=== PATIENT | female | born 1965 | race Caucasian/White ===

== ENCOUNTER 2017-12-20 08:52 | Outpatient (CLI) | payer OTHER ==
[2017-12-20 18:15] LABS: Bilirubin Negative (Negative); Blood, Urine Negative (Negative); Clarity CLEAR (Clear); Glucose, Urine (Dipstick) Negative (Negative); Leukocyte Negative (Negative); Nitrite Negative (Negative); Protein, Urine (Dipstick) 300 mg/dL (Neg-Trace); Specific Gravity, Urine 1.014 (1.002-1.036); Urobilinogen 0.2 mg/dL (0.2-1.0)
[2017-12-20 18:17] LABS: Hemoglobin 12.6 g/dL (12.0-16.0); Mean Corpuscular HGB CONC 34.3 g/dL (32.0-36.0); Mean Corpuscular Hemoglobin 32.4 pg (27.0-31.0); Mean Corpuscular Volume 94.6 fl (81.0-99.0); Mean Platelet Volume 7.2 fL (7.4-10.4); Platelet Count 180 thou/uL (130-400); Red Blood Cell (RBC) Count 3.89 mill/uL (4.20-5.40); White Blood Cell (WBC) Count 5.9 thou/uL (4.8-10.8)
[2017-12-20 18:35] LABS: Anion Gap 12 mmol/L (10-20); BUN (Urea Nitrogen) 45 mg/dL (9.8-20.1); Calc. Creatinine Clearance 0 mL/min (70-130); Calcium 9.5 mg/dL (7.8-10.44); Carbon Dioxide 24 mmol/L (22-29); Chloride 108 mmol/L (98-107); Estimated GFR-MDRD 17; Glucose 100 mg/dL (70-105); Iron 77 ug/dL (50-170); Iron Binding Capacity, Total 331 mcg/dL (265-497); Potassium 4.6 mmol/L (3.5-5.1); Sodium 139 mmol/L (136-145)
[2017-12-20 18:46] LABS: Ferritin 178.41 ng/mL (10-291); Vitamin D, 25 Hydroxy 17.2 ng/ml (> 30.0)
[2017-12-20 19:02] LABS: Creatinine, Urine 72.49 mg/dL (47-110)
== END 2017-12-20 08:53 | disposition home or self-care (01) ==
LOC: BURULT 08:52
PROVIDERS: ATTEND Internal Medicine Nephrology
DX: I12.9 Hypertensive chronic kidney disease with stage 1 through stage 4 chronic kidney disease, or unspecified chronic kidney disease (principal); N18.4 Chronic kidney disease, stage 4 (severe); E55.9 Vitamin D deficiency, unspecified
CPT/HCPCS: 36415; 80048; 81003; 82306; 82570; 82728; 83540; 83550; 83970; 84156; 85027

== ENCOUNTER 2018-09-24 18:01 | Emergency (ER) | payer OTHER ==
[2018-09-24 18:34] LABS: #Basophils 0.1 thou/uL (0.0-0.2); #Eosinphils 0.4 thou/uL (0.0-0.7); #Lymphocytes 0.9 thou/uL (1.20-3.40); #Monocytes 0.7 thou/uL (0.11-0.59); #Neutrophils 10.4 thou/uL (1.40-6.50); %Basophils 0.9 % (0.0-1.0); %Eosinophils 3.3 % (0.0-10.0); %Lymphocytes 6.8 % (21.0-51.0); %Monocytes 5.7 % (0.0-10.0); %Neutrophils 83.3 % (42.0-75.0); Hemoglobin 12.5 g/dL (12.0-16.0); Mean Corpuscular HGB CONC 35.6 g/dL (32.0-36.0); Mean Corpuscular Hemoglobin 31.1 pg (27.0-31.0); Mean Corpuscular Volume 87.4 fL (78.0-98.0); Mean Platelet Volume 6.6 fL (7.4-10.4); Platelet Count 207 thou/uL (130-400); RBC Distribution Width 11.4 % (11.5-14.5); Red Blood Cell (RBC) Count 4.02 mill/uL (4.20-5.40); White Blood Cell (WBC) Count 12.5 thou/uL (4.8-10.8)
[2018-09-24 18:48] LABS: ALT (SGPT) 17 U/L (8-55); AST (SGOT) 16 U/L (5-34); Albumin 4.2 g/dL (3.5-5.0); Alkaline Phosphatase 81 U/L (40-150); Anion Gap 15 mmol/L (10-20); BUN (Urea Nitrogen) 49 mg/dL (9.8-20.1); Bilirubin, Total 0.5 mg/dL (0.2-1.2); Calc. Creatinine Clearance 0 mL/min (70-130); Calcium 9.5 mg/dL (7.8-10.44); Carbon Dioxide 21 mmol/L (22-29); Chloride 108 mmol/L (98-107); Estimated GFR-MDRD 14; Globulin 3.1 g/dL (2.4-3.5); Glucose 100 mg/dL (70-105); Lipase 42 U/L (8-78); Protein, Total 7.3 g/dL (6.0-8.3); Sodium 139 mmol/L (136-145)
[2018-09-24] MEDS ORDERED: Prochlorperazine 10 MG/2 ML VIAL ONE (18:51)
[2018-09-24] MEDS ORDERED: Ondansetron PF 4 MG/2 ML Vial ONE (18:51)
[2018-09-24 18:54] LABS: Clarity Clear (Clear); Leukocyte Negative (Negative); Nitrite Negative (Negative); Protein, Urine (Dipstick) > or equal to 300 mg/dL (Neg-Trace); pH, Urine 5.5 (5.0-9.0)
[2018-09-24 18:55] LABS: Bilirubin Negative (Negative); Blood, Urine Negative (Negative); Glucose, Urine (Dipstick) Negative (Negative); Urobilinogen 0.2 mg/dL (0.2-1.0)
[2018-09-24 19:00] LABS: RBC/HPF 0-3 HPF (0-3); Squamous Epithelial 0-3 HPF (0-3); WBC/HPF 0-3 HPF (0-3)
[2018-09-24 19:01] LABS: Bacteria/HPF 2+ HPF (None Seen); Transitional Epithelial 0-3 HPF (0-3)
--- NOTE | 2018-09-24 20:40 | CT ---
CT ABDOMEN AND PELVIS WITHOUT CONTRAST: 09/24/2018 HISTORY: A spiral CT of the abdomen and pelvis was performed for evaluation of abdominal pain with nausea and vomiting. TECHNIQUE: Axial slices were acquired with no oral or IV contrast used. Coronal and sagittal reconstructions we re done. FINDINGS: ABDOMEN: The lung bases are clear. The liver and spleen show no space occupying disease. The splee n is upper normal in size, at 14 cm in AP dimension. The gallbladder, aorta, and adrenal glands show no acute change. There is either lobulation or scarring of the kidneys, potentially from prior infe ction. The right kidney is smaller than the left. A single tiny calcification is seen in the right kidney. There is no sign of hydronephrosis or ureteral calculi. The bowel shows no distention or wall thickening. No inflammatory changes are seen around the bowel. A normal appearing retrocecal appendix is identified. There are several phleboliths scattered thro ughout the abdomen and pelvis, but all are clearly outside the confines of the ureters. A small, fat -filled umbilical hernia is present, of no real concern. No free air or free fluid is seen. PELVIS: No adnexal masses, free fluid, or inflammatory change. There is considerable degenerative change in the lower lumbar spine. There is a degenerated disk at L5-S1 with a large amount of osteophyte formation. Some posterior osteophyte slightly encroaches upo n the thecal sac. At L4-L5, left posterior osteophyte potentially narrows the left lateral recess an d could even contact the exiting left L4 root. IMPRESSION: 1. No acute abdominal findings to explain pain, nausea, and vomiting. 2. Borderline splenic size with no other abnormalities seen here. 3. Small, fat-filled umbilical hernia, of no concern. 4. Prominent degenerative changes of the lower lumbar spine. POS: HOME
== END 2018-09-24 19:38 | disposition home or self-care (01) ==
LOC: BURERS 18:01
DX: R11.2 Nausea with vomiting, unspecified (principal); I10 Essential (primary) hypertension; Z79.899 Other long term (current) drug therapy
CPT/HCPCS: 74176; 80053; 81003; 81015; 83690; 85025; 87804; 96361; 96374; 96375; J0780; J2405

== ENCOUNTER 2019-09-25 11:35 | Outpatient (CLI) | payer OTHER, MEDICARE ==
[~2019-09-25 11:35] MED LIST: Iopamidol 370 76% 100 ML VIAL ONE
--- NOTE | 2019-09-25 12:35 | CT ---
CT Abdomen WO Con History: R 10.12 left upper quadrant pain Comparison: CT examination 2018 Findings: Lung bases are clear aside from some scar in the right posterior basal lower lobe unchanged from 2018. No pericardial effusion. Exam of the pelvis is limited as this is only a CT abdomen and not a CT abdomen/pelvis exam. Some sof t tissue stranding the right lower quadrant with a surgical drain in place. Splenic size upper limits of normal. Normal proximal small bowel rotation. Atrophy of the right kidne y relative to the left with punctate nonobstructive interpolar and superior pole calculi. Mild fullness of the right and left renal pelvis by residuals of the unchanged from 2018. Fat-containing ventral hernias throughout the supraumbilical fascia. No dilated loops of large or sma ll bowel. Impression: 1. Limited exam as this is only CT abdomen and not a CT abdomen/pelvis exam. Incomplete evaluation in flammatory changes in the right lower quadrant with indwelling surgical drain. 2. Chronic findings of the abdomen are unchanged from 2018
[2019-09-25 12:45] LABS: #Basophils 0.1 thou/uL (0.0-0.2); #Eosinphils 0.4 thou/uL (0.0-0.7); #Lymphocytes 2.2 thou/uL (1.20-3.40); #Monocytes 0.4 thou/uL (0.11-0.59); #Neutrophils 2.9 thou/uL (1.40-6.50); %Basophils 2.1 % (0.0-1.0); %Lymphocytes 36.2 % (21.0-51.0); %Monocytes 7.1 % (0.0-10.0); %Neutrophils 48.6 % (42.0-75.0); Hemoglobin 12.2 g/dL (12.0-16.0); MDiff Complete? YES; Macrocytosis SLIGHT = 6-15 cells (100X) (0-5/hpf); Mean Corpuscular Hemoglobin 34.2 pg (27.0-31.0); Mean Platelet Volume 6.4 fL (7.4-10.4); Platelet Count 168 thou/uL (130-400); RBC Distribution Width 14.7 % (11.5-14.5); Red Blood Cell (RBC) Count 3.58 mill/uL (4.20-5.40)
== END 2019-09-25 11:36 | disposition home or self-care (01) ==
LOC: BURCT 11:35
PROVIDERS: ATTEND Physician Assistant
DX: R10.12 Left upper quadrant pain (principal)
CPT/HCPCS: 36415; 74150; 83690; 85025; Q9967

== ENCOUNTER 2019-11-23 10:16 | Emergency (ER) | payer BC, MEDICARE ==
--- NOTE | 2019-11-23 10:42 | RAD ---
EXAM: Portable chest PROVIDED CLINICAL HISTORY: Syncope COMPARISON: 10/08/2019 FINDINGS: Cardiac and mediastinal silhouette is within normal limits. No focal consolidation, pleural fluid or pneumothorax evident. IMPRESSION: No evidence for an acute cardiopulmonary process.
[2019-11-23 10:43] LABS: #Basophils 0.1 thou/uL (0.0-0.2); #Eosinphils 0.4 thou/uL (0.0-0.7); #Lymphocytes 2.4 thou/uL (1.20-3.40); #Monocytes 0.6 thou/uL (0.11-0.59); #Neutrophils 2.4 thou/uL (1.40-6.50); %Basophils 2.5 % (0.0-1.0); %Eosinophils 7.2 % (0.0-10.0); %Monocytes 10.7 % (0.0-10.0); %Neutrophils 39.6 % (42.0-75.0); Hemoglobin 11.7 g/dL (12.0-16.0); Mean Corpuscular HGB CONC 32.1 g/dL (32.0-36.0); Mean Corpuscular Hemoglobin 31.9 pg (27.0-31.0); Mean Corpuscular Volume 99.6 fL (78.0-98.0); Mean Platelet Volume 6.9 fL (7.4-10.4); Platelet Count 169 thou/uL (130-400); RBC Distribution Width 15.9 % (11.5-14.5); Red Blood Cell (RBC) Count 3.67 mill/uL (4.20-5.40); White Blood Cell (WBC) Count 5.9 thou/uL (4.8-10.8)
[2019-11-23 10:57] LABS: ALT (SGPT) 25 U/L (8-55); AST (SGOT) 22 U/L (5-34); Albumin 3.9 g/dL (3.5-5.0); Alkaline Phosphatase 69 U/L (40-110); Anion Gap 14 mmol/L (10-20); BUN (Urea Nitrogen) 19 mg/dL (9.8-20.1); Bilirubin, Total 0.5 mg/dL (0.2-1.2); Calc. Creatinine Clearance 0 mL/min (70-130); Calcium 9.5 mg/dL (7.8-10.44); Carbon Dioxide 30 mmol/L (22-29); Chloride 100 mmol/L (98-107); Estimated GFR-MDRD 15; Globulin 3.3 g/dL (2.4-3.5); Glucose 118 mg/dL (70-105); Potassium 3.7 mmol/L (3.5-5.1); Protein, Total 7.2 g/dL (6.0-8.3); Sodium 140 mmol/L (136-145)
[2019-11-23 11:35] LABS: Bilirubin Negative (Negative); Blood, Urine Negative (Negative); Clarity Slightly Cloudy (Clear); Glucose, Urine (Dipstick) Negative (Negative); Leukocyte Negative (Negative); Nitrite Negative (Negative); Protein, Urine (Dipstick) 100 mg/dL (Neg-Trace); Urobilinogen 0.2 mg/dL (Less than 2)
[2019-11-23 11:41] LABS: Bacteria/HPF 1+ HPF (None Seen); Broad Cast None Seen LPF (None Seen); Calcium Oxalate Crystals None Seen HPF (None Seen); Cellular Cast None Seen LPF (None Seen); Epithelial Cast None Seen LPF (None Seen); Fatty Cast None Seen LPF (None Seen); Mucous/LPF None Seen LPF (<2+); Other Casts None Seen LPF (None Seen); Oval Fat Bodies/HPF None Seen HPF (None Seen); RBC/HPF None Seen HPF (0-3); Red Blood Cell Cast None Seen LPF (None Seen); Renal Epithelial None Seen HPF (None Seen); Sperm/HPF None Seen HPF (None Seen); Transitional Epithelial None Seen HPF (None Seen); Trichomonas/HPF None Seen HPF (None Seen); Triple Phosphate Crystal None Seen HPF (None Seen); Unclassified Crystals None Seen HPF (None Seen); WBC/HPF 0-3 HPF (0-3); Waxy Cast None Seen LPF (None Seen); White Blood Cell Cast None Seen LPF (None Seen); Yeast-Budding None Seen HPF (None Seen); Yeast-Hyphae None Seen HPF (None Seen)
== END 2019-11-23 12:22 | disposition home or self-care (01) ==
LOC: BURERS 10:16
DX: R55 Syncope and collapse (principal); M79.89 Other specified soft tissue disorders; I10 Essential (primary) hypertension; Z79.891 Long term (current) use of opiate analgesic; Z79.899 Other long term (current) drug therapy; Z99.2 Dependence on renal dialysis
CPT/HCPCS: 36416; 71045; 80053; 81003; 81015; 84484; 85025; 93005; 94760

== ENCOUNTER 2020-07-30 15:04 | Emergency (ER) | payer BC, MEDICARE ==
[2020-07-30 15:36] LABS: #Basophils 0.1 thou/uL (0.0-0.2); #Eosinphils 0.4 thou/uL (0.0-0.7); #Monocytes 0.7 thou/uL (0.11-0.59); %Basophils 1.4 % (0.0-1.0); %Eosinophils 5.2 % (0.0-10.0); %Lymphocytes 27.7 % (21.0-51.0); %Monocytes 9.5 % (0.0-10.0); %Neutrophils 56.2 % (42.0-75.0); Mean Corpuscular HGB CONC 31.9 g/dL (32.0-36.0); Mean Corpuscular Hemoglobin 32.2 pg (27.0-31.0); Mean Platelet Volume 5.9 fL (7.4-10.4); Platelet Count 136 thou/uL (130-400); RBC Distribution Width 11.7 % (11.5-14.5); Red Blood Cell (RBC) Count 3.73 mill/uL (4.20-5.40); White Blood Cell (WBC) Count 7.2 thou/uL (4.8-10.8)
[2020-07-30 15:53] LABS: ALT (SGPT) 21 U/L (8-55); AST (SGOT) 16 U/L (5-34); Alkaline Phosphatase 85 U/L (40-110); Anion Gap 17 mmol/L (10-20); BUN (Urea Nitrogen) 37 mg/dL (9.8-20.1); Bilirubin, Total 0.5 mg/dL (0.2-1.2); Calc. Creatinine Clearance 0 mL/min (70-130); Carbon Dioxide 29 mmol/L (22-29); Chloride 99 mmol/L (98-107); Estimated GFR-MDRD 12; Globulin 2.9 g/dL (2.4-3.5); Glucose 96 mg/dL (70-105); Magnesium 2.2 mg/dL (1.6-2.6); Potassium 4.5 mmol/L (3.5-5.1); Protein, Total 6.9 g/dL (6.0-8.3); Sodium 140 mmol/L (136-145)
[2020-07-30] MEDS ORDERED: Ondansetron ODT 4 MG TAB ONE (16:05)
[2020-07-30 16:10] LABS: Bilirubin Negative (Negative); Blood, Urine Negative (Negative); Clarity Clear (Clear); Glucose, Urine (Dipstick) Negative (Negative); Ketone, Urine Negative (Negative); Leukocyte Negative (Negative); Nitrite Negative (Negative); Protein, Urine (Dipstick) 100 mg/dL (Neg-Trace); Specific Gravity, Urine 1.015 (1.005-1.030); Urobilinogen 0.2 mg/dL (Less than 2); pH, Urine 7.5 (5.0-9.0)
[2020-07-30 16:14] LABS: Bacteria/HPF 1+ HPF (None Seen); RBC/HPF 0-3 HPF (0-3); Squamous Epithelial 0-3 HPF (0-3); WBC/HPF 0-3 HPF (0-3)
== END 2020-07-30 17:30 | disposition home or self-care (01) ==
LOC: BURERS 15:04
DX: R55 Syncope and collapse (principal); I10 Essential (primary) hypertension; Z99.2 Dependence on renal dialysis; Z85.41 Personal history of malignant neoplasm of cervix uteri; Z79.899 Other long term (current) drug therapy
CPT/HCPCS: 36415; 80053; 81003; 81015; 83735; 84484; 85025; 87086; 93005; Q0162

== ENCOUNTER 2023-01-01 10:55 | Emergency (ER) | payer MEDICARE, BC | END 2023-01-01 11:30 | disposition home or self-care (01) | LOC: BURERS 10:55 | DX: H01.004 Unspecified blepharitis left upper eyelid (principal); I10 Essential (primary) hypertension | CPT/HCPCS: 99283 ==